=== PATIENT | male | born 1935 | race Caucasian/White ===

== ENCOUNTER 2016-06-02 11:43 | Inpatient (IN) | payer MEDICARE ==
[~2016-06-02] VITALS: Ht 177.8 cm; Wt 80.8 kg
--- NOTE | ~2016-06-02 | CO ---
ADMIT: 06/02/2016 RM/LOC: 504 [facility] MR#: [id number] [address] [address] OLESYA PARIKH [address] [place] [address] Consultation SEX: M AGE: 81 : 1935 Corrected: 06/03/2016 1136 tawny ATTENDING PHYSICIAN: Tony Crandall CONSULTING PHYSICIAN: Regulo Myers MD REASON FOR CONSULTATION: Left femur fracture. HISTORY OF PRESENT ILLNESS: The patient is an 81-year-old male, who was doing some laundry, turned, fell down on his left side injuring his left hip. He had left total hip arthroplasty done by Dr. Trotter in 2010. He had his right one done by Dr. Brito in 2012. Denies any problems prior to the fall. He was brought to the emergency room, x-rays were obtained. He was found to have a periprosthetic fracture of the left proximal femur with what appears to be a well-seated and well-fixed femoral component here. I was asked to see the patient for definitive care and treatment of his fracture. MEDICATIONS: 1. Some thyroid replacement. 2. Flomax. ALLERGIES: PENICILLIN. SOCIAL HISTORY: The patient is single. He has a significant other who lives with him. Denies alcohol or tobacco use. REVIEW OF SYSTEMS: Noncontributory. He does have a history of atrial fibrillation and a pacemaker, said he saw Cardiology a week ago and did not have any problems at that point. PHYSICAL EXAMINATION: HEENT: As per Dr. Crandall's evaluation. HEART: As per Dr. Crandall's evaluation. LUNGS: As per Dr. Crandall's evaluation. ABDOMEN: As per Dr. Crandall's evaluation. EXTREMITIES: Examination of the left lower extremity, swelling and tenderness about the hip. There is some shortening and external rotation noted here. Appears to be otherwise distally neurovascularly intact. X-RAYS: Show kind of a spiral oblique fracture of the proximal femur kind of around the distal portion of the femoral prosthesis. There was no dislocation of the hip. Prosthesis appears to be well fixed. ASSESSMENT: Left periprosthetic femur fracture. ADMIT: 06/02/2016 RM/LOC: 504 [facility] MR#: [id number] [address] [address] OLESYA PARIKH [address] [place] [address] Consultation SEX: M AGE: 81 : 1935 PLAN: At this point, we talked to him about treatment options including operative fixation, would like to go ahead and proceed with this. We discussed the procedure as well as risks and benefits, which include but are not limited to, bleeding, damage to nerves and blood vessels, infection, possible nonunion, need for possible further surgery, and anesthetic risks and potential complications, which we will have Anesthesia go over with him as well. At this point, the patient elected to go ahead and proceed. Plan will be an open reduction and internal fixation of the femur fracture using plate, screws, and cables. We did discuss this with him at length as well. Regulo Myers MD/ troy JOB #: [id number] CC: Tony Crandall, Attending Physician Tony Crandall, Family Physician Corrected: 06/03/2016 1136 tawny
--- NOTE | 2016-06-03 11:08 | ER ---
ADMIT: 06/02/2016 RM/LOC: 504 [facility] MR#: [id number] [address] [place] [phone] OLESYA PARIKH [address] [place] [address] Emergency Room Report SEX: M AGE: 81 : 1935 DATE: 06/02/2016 CHIEF COMPLAINT: Fall, left hip and femur pain. HISTORY OF PRESENT ILLNESS: This is an 81-year-old white male coming in after slipping and falling. He has bilateral hip prosthesis. He has obviously significant pain in his left femur. He did not pass out. He has no other associated complaints. PAST MEDICAL HISTORY: Significant disease: Hypothyroidism, history of gastric ulcerations surgery in the past. Also, had been admitted on 27 for atrial fibrillation with rapid rate. However, he takes no medicines for this. MEDICATION: Synthroid only. ALLERGIES: UNKNOWN. FAMILY AND SOCIAL HISTORY: Negative. REVIEW OF SYSTEMS: CONSTITUTIONAL: Negative. RESPIRATORY: Negative. PHYSICAL EXAMINATION: GENERAL: No acute distress. VITAL SIGNS: Stable. Afebrile. HEENT: Conjunctivae are clear. Nose is clear. Mouth - mucous membranes are moist. NECK: Supple, no masses. RESPIRATORY: No retracting. HEART: Regular rate and rhythm. GI: Abdomen is nontender, no rebound, guarding, rigidity or organomegaly. SKIN: Warm, pink and dry. EXTREMITIES: Again, this is where his pain is. As noted, he had bilateral hip prosthesis. DIRECTOR WORKERS COMPENSATION: Alert and oriented. Motor and sensory functions are intact. LABORATORY DATA: CBC, chemistry, EKG, Protime, and UA are pending. Chest x- ADMIT: 06/02/2016 RM/LOC: 504 [facility] MR#: [id number] [address] [place] [phone] OLESYA PARIKH [address] [place] [address] Emergency Room Report SEX: M AGE: 81 : 1935 ray negative. X-ray pelvis is negative, but the femur at the tip of the prosthesis on the left with oblique fracture. EKG at this time is pending. DIAGNOSES: 1. Left femur fracture at prosthesis. 2. History of atrial fibrillation. 3. Hypothyroidism. TREATMENT: I spoke Dr. Crandall, and Dr. Myers who will admit. As well as the . He has pain medicine. He is comfortable. CONDITION ON ADMISSION: Fair. Jm Bolivar MD/ troy JOB #: [id number] CC: Tony Crandall MD, Attending Physician Tony Crandall MD, Family Physician
--- NOTE | 2016-06-03 18:13 | NUR ---
UNABLE TO PEFORM SECOND ASSESSMENT WELL END OF SHIFT PAIN ASSESSMENT OR I/O D/T PATIENT STILL IN SURGERY.
--- NOTE | 2016-06-04 11:08 | HP ---
ADMIT: 06/02/2016 RM/LOC: 504 [facility] MR#: [id number] [address] [address] RAUL PARIKH [address] [place] [address] History and Physical SEX: M AGE: 81 : 1935 DATE OF SERVICE: CHIEF COMPLAINT: Fractured left femur. HISTORY OF PRESENT ILLNESS: Raul is a very nice 81-year-old male, who I believe receives some of his primary care from Dr. Lepe here in town. He was at home doing some laundry, he turned, fell down to the floor, pain in his left hip, was brought to emergency room and found to have a fractured femur right next to his left total hip prosthesis. He is not certain if it broke before or after he fell. He is admitted to hospital at this time for orthopedic consult for internal fixation and repair of the left femur fracture. PAST MEDICAL HISTORY: Information obtained from patient and from his significant other who is his [id number]. She says she is his fiancee, they are not , but they have been together for 10 years. She states he had significant injury about 10 years ago when he was painting the top of a motor home and he fell off it, had head injury with fractured ribs. He was hospitalized with a chest tube insertion at that time. He is also found to have some type of abscess in his stomach that was drained at that time. He did require G tube at that time and that subsequently has been removed. He additionally has history of hypothyroidism, bilateral total hip arthroplasty; first one in the left hip replaced in 2010 here in [place], second one in right hip in [address] [place] [address] Brito. In 2011, he had a pacemaker placed. He is followed by Dr. Gavin Wilkerson at Cardiology. He has history of as mentioned hypothyroidism, takes thyroid replacement. Otherwise, no other medications. History of osteoarthritis. ALLERGIES: NONE. MEDICATIONS: None other than thyroid replacement. His says he takes [id number] blood thinner but not aspirin. Additional medication Flomax 0.4 mg daily. SOCIAL HISTORY: He is single. He has a son living in [address] [place] [address]. Power-of- commercial real estate attorney is his significant other who lives with him. He does not use alcohol or tobacco. FAMILY HISTORY: Noncontributory. He had three sisters. He was the youngest. Sisters have all . REVIEW OF SYSTEMS: Negative other than noted above. History of atrial fibrillation in the past with cardiac pacemaker. He denies any chest pain, shortness of breath, palpitations. He says he saw Cardiology last week and everything was doing well. PHYSICAL EXAMINATION: GENERAL: An 81-year-old male alert, cooperative. He is oriented x3. He is somewhat hearing impaired. ADMIT: 06/02/2016 RM/LOC: 504 [facility] MR#: [id number] [address] [place] [phone] PARIKH LINCOLN [address] [place] [address] History and Physical SEX: M AGE: 81 : 1935 VITAL SIGNS: Stable. Temp is 96.6, pulse 79, regular, respiratory rate 16, BP 116/70, O2 saturation 96% on room air. HEENT: Eyes, PERRL, EOMs intact. TMs not seen. Hearing aids in place. Throat is moist, not inflamed. NECK: Supple. No lymphadenopathy. No thyromegaly. LUNGS: Clear to auscultation. Respirations not labored. HEART: Regular rate. No murmur heard. ABDOMEN: Soft. No megaly or tenderness. /RECTAL: Deferred. EXTREMITIES: Some tenderness to the left hip and swelling of the left hip and left thigh region. LABORATORY AND X-RAY DATA: INR is normal at 1.07. Chemistry panel essentially normal. Creatinine is 0.8. Glucose is 120. Liver enzymes are normal. CBC; white count is 8.6, hemoglobin 13.9, platelets 150,000. Chest x- ray is unremarkable. EKG, computer interpretation is atrial fibrillation. I do not see any pacemaker activity and there does appear to be P waves present. There is some bundle-branch block present. DIAGNOSTIC IMPRESSION: 1. Fracture of left femur. 2. History of bilateral total hip arthroplasty. 3. Prior history of gastric abscess. 4. Hypothyroidism. 5. Hearing impaired. 6. Cardiac pacemaker with possible atrial fibrillation, not on anticoagulant therapy. PLAN: We will place him on telemetry, get repeat EKGs and cardiac enzymes. Otherwise, the patient is okay for OR. I did discuss with he and his power-of- commercial real estate attorney code status and they do wish to be a full code but not long-term ventilator management. Tony Crandall MD/ troy JOB #: [id number] CC: Tony Crandall, Attending Physician Tony Crandall, Family Physician
--- NOTE | 2016-06-10 09:25 | OR ---
ADMIT: 06/02/2016 RM/LOC: 504 [facility] MR#: [id number] [address] [address] OLESYA PARIKH [address] [place] [address] Operative/Delivery Room Report SEX: M AGE: 81 : 1935 SURGERY DATE: 06/03/2016 SURGEON: Regulo Myers MD PREOPERATIVE DIAGNOSIS: Left periprosthetic femur fracture adjacent to a what appears to be well-fixed total hip arthroplasty. POSTOPERATIVE DIAGNOSIS: Left periprosthetic femur fracture adjacent to a what appears to be well-fixed total hip arthroplasty. PROCEDURE: Open reduction and internal fixation using 4.5 curved plate using cables as well as screw fixation. RN HOUSE SUPERVISOR: Hal Farr PA-C and ANGELA Saavedra ANESTHESIA: General. ESTIMATED BLOOD LOSS: 1250 mL. COMPLICATIONS: None. CONDITION: Fair to recovery room. INDICATIONS: The patient is an 81-year-old male, who fell yesterday while doing some laundry, injuring his left hip. He was brought to the emergency room, x-rays were obtained. He was found to have a periprosthetic left proximal femur fracture adjacent to a total hip arthroplasty here. The x-rays appeared to be just kind of a spiral oblique-type fracture with some displacement here. We discussed the injury as well as treatment options with the patient. He wishes to proceed with surgical treatment and fixation of this at this time. The procedure as well as risks and benefits were discussed with him at length. Questions were answered and did agree to proceed. DESCRIPTION OF PROCEDURE: After informed consent was obtained, the patient was taken to the operating room, placed on the operative table in supine position after receiving a general anesthetic. The patient was then placed in the right lateral decubitus position with the left hip up. Once this was completed, the left lower extremity was prepped and draped in usual sterile fashion. We then made an incision along the proximal femur extending this probably about 20 cm or so through the skin, subcutaneous tissue. We started at the tip of the greater trochanter, extended down to the tip of the prosthesis and the fracture site here. Hemostasis was maintained using Bovie electrocautery. We then split the IT band longitudinally. We then identified the vastus lateralis, split the vastus lateralis bluntly using Bovie to cauterize any bleeders, had a fairly large hematoma here, which we sucked out. We did then identified the fracture site with quite a bit of oozing and bleeding, appeared to be coming mostly from the bone here. We dissected off the soft tissues off the lateral cortex of the femur using a large elevator. We then identified the fracture site. I placed some traction here. I used a ADMIT: 06/02/2016 RM/LOC: 504 [facility] MR#: [id number] [address] [place] [phone] OLESYA PARIKH [address] [place] [address] Operative/Delivery Room Report SEX: M AGE: 81 : 1935 large curette and cleaned out the fracture hematoma and copiously irrigated this. Once this was completed, we then were able to identify the fracture site. There was a large kind of posterior-lateral butterfly fragment. We then with some traction and internal and external rotation, we were able to get all the fragments keyed in anatomically and we were able to hold this using 2 Chava clamps. Once this was completed, we then placed three 1.0 cables around the fracture fragments to hold this into position, so that we would be able to remove the Chava clamp and place a plate here. The cables were passed without difficulty, tightened down and crimped. Once this was completed, we took AP and lateral fluoroscopic views of the proximal femur in the fracture site. Cables were in good position. The fracture appeared to be anatomically reduced. Of note, prior to reducing the fracture, we were able to identify the distal portion of the stem and this was confirmed to be well fixed here. Once this was completed, we then placed a 16-hole curved 4.5 plate beginning at the greater trochanter. This was appeared to be the correct length of plate at this point. Holding this in position, we then placed a 4.5 cortical screw distal to the tip of the prosthesis. We had an excellent bite with this. We then rechecked the x-rays and the plate remained in good position. We then began proximal fixation using 3 cables through eyelets in the plate, passing the cables and tightening these down to about 50 kg. We then placed additional unicortical screws proximally here as well. Once this was completed, we then finished our fixation distally including 4 additional locking screws. We did make a small stab incision at the most distal portion of the plate and placed the distal 3 screws percutaneously through about a 2 cm incision here. Once this was all completed, the wounds were copiously irrigated. The additional 3 cables were crimped and cut. Multiple fluoroscopic views were obtained AP and lateral plane, showing excellent reduction of the fracture and good placement and fixation of the plate here. The wounds were then copiously irrigated. We did take an intraoperative hemoglobin, it was 8.9. The patient does have some blood available, I will check another hemoglobin in a couple of hours. The fascia of the vastus lateralis was then reapproximated using 2-0 Vicryl in a running fashion. The split in the IT band was reapproximated using #1 Vicryl in a [id number]-hw-wbynx fashion. Wound was irrigated one final time. Subcutaneous tissues were closed in layers using 2-0 Vicryl in simple interrupted fashion. The skin was closed using skin marco. A sterile compressive dressing was applied consisting of Xeroform, plain gauze, ABDs, Webril, and an Alireza wrap. I placed the left lower extremity into a knee immobilizer and transferred him to recovery room in fair condition. Regulo Myers MD/ troy JOB #: [id number] CC: Tony Crandall, Attending Physician Tony Crandall, Family Physician
--- NOTE | 2016-06-20 07:52 | DS ---
ADMIT: 06/02/2016 RM/LOC: 504 [facility] MR#: [id number] ACC#: [id number] [id number] [place], [place] [address] OLESYA PARIKH [address] [place] [address] General Discharge Summary SEX: M AGE: 81 : 1935 ADMISSION DATE: 06/02/2016 DISCHARGE DATE: 06/12/2016 ADMITTING DIAGNOSIS: Fractured left hip. DISMISSAL DIAGNOSIS: Fractured left hip. PROCEDURE: Open reduction and internal fixation of hip fracture. COMPLICATING DIAGNOSES: 1. Aspiration pneumonitis. 2. Ileus. 3. Acute blood loss anemia. 4. Hypokalemia. 5. Hypothyroidism. 6. Cardiac pacemaker. 7. Bilateral total hip arthroplasties. CONSULTS: Regulo Myers MD. CHIEF COMPLAINT AND HISTORY OF PRESENT ILLNESS: An 81-year-old male, who receives his primary care from Dr. Bailey Lepe in [place]. He was brought in to the emergency room after he fell at home in the laundry room with pain in his left hip. He did not have any loss of consciousness. He just slipped and fell. X-ray in the emergency room revealed fracture of the femur just proximal to his hip prosthesis. LABORATORY REPORTS: Hemoglobin prior to dismissal was 9.0, white count 7.1, platelets 192,000. Hemoglobin did drop as low as 7.1 during the hospital stay. INR is 1.07. UA was unremarkable. Electrolytes prior to dismissal; sodium 142, potassium 3.7, chloride 108, CO2 of 26, BUN 11, creatinine 0.9, glucose 93. Troponin I x2 on admission was normal. T4 was normal at 1.25. TSH was slightly elevated at 4.1. Flat plate of the abdomen and CT of the abdomen showed air distended segments of colon and cecum somewhat enlarged with feces, appeared to be an ileus of the colon. X-ray of hip shows periprosthetic mildly displaced femoral shaft fracture. Chest x-ray showed no acute changes. Repeat flat plate abdomen on June 07 showed ileus unchanged. June 07 chest x-ray showed right lower lobe infiltrate. Barium swallow was performed on June 08. I refer you to speech therapist's notes. He was at high risk for aspiration. Chest x-ray, June 10, showed bibasilar atelectasis. COURSE IN THE HOSPITAL: Ed was admitted through the emergency room. Orthopedic consult was obtained. Once he was medically stable, Dr. Myers took him to the operating room, did open reduction and internal fixation of the femoral fracture. Postoperatively, he did have ileus, and discussing with his significant other, who is his fiancee of 10 years, she states at home, they give each other every morning a coffee enema for the health benefits that are reported from coffee enemas. In any event, he developed a fairly significant ADMIT: 06/02/2016 RM/LOC: 504 [facility] MR#: [id number] [address] [place] [phone] PARIKH SELMA [address] [place] [address] General Discharge Summary SEX: M AGE: 81 : 1935 colonic ileus postoperatively requiring laxatives and enemas to get his stool to move. He did get somewhat distended. Eventually, bowel function did return and he had bowel movements with some encouragement. He did require, as mentioned, soapsuds enema. Due to anemia, he was given 1 unit of blood transfusion. He did develop a temperature and it felt to be due to his pneumonitis and aspiration pneumonia. He was started on IV Levaquin, DuoNeb nebulizers, and oral Zithromax was added. Speech Therapy recommended n.p.o. After discussion with the patient and his significant other, for quality of life purposes, requested that he continue to be allowed to eat, and they did realize that he was at risk for recurrent aspiration pneumonia. He did develop some significant ecchymosis in the scrotal area. He had a hip spica Alireza wrap on it that was fairly tight around the abdomen. Once this was removed, the edema in the scrotal area improved. The ecchymosis did improve slowly. It was felt this was due to blood from the hip fracture and the surgery going into the scrotal area which was dependent, plus had a tourniquet effect from the Alireza wrap. His laboratory values were monitored. His pneumonia improved clinically with the nebulizers and IV antibiotics. He was able to tolerate oral diet. He was placed on thickened liquids and mechanical soft diet. Arrangements were made for him to go to inpatient rehab unit for ongoing physical therapy, occupational therapy due to the hip fracture. At the time of transfer to IRU, he was tolerating oral intake. MEDICATIONS: At the time of transfer to the IRU were: 1. Flomax 0.4 mg daily. 2. Senokot S one tab b.i.d. 3. Synthroid 25 mcg daily. 4. Zithromax 250 mg daily for two more days. 5. DuoNeb twin jet nebulizer q.i.d. 6. Lovenox 40 mg subcutaneous q.24 hours. 7. Hydrocodone p.r.n. 8. Maalox. 9. Milk of magnesia. Tony Crandall MD/ troy JOB #: [id number] CC: Tony Crandall MD, Attending Physician Tony Crandall MD, Family Physician
[2016-07-01] MEDS ORDERED: VITAMIN D1000 UNI1 PO (08:26)
[2016-07-01] MEDS ORDERED: FLOMAX DPS0.4 MG PO (08:26)
[2016-07-01] MEDS ORDERED: ASA325 MG PO (08:26)
[2016-07-01] MEDS ORDERED: TYLENOL DPS325 MG PO (08:27)
[2016-07-01] MEDS ORDERED: ULTRAM DPS50 MG PO (08:27)
== END 2016-06-12 14:40 | disposition short-term general hospital (02) | DRG 480 ==
LOC: ER 11:43 → 5MS 14:20 → 6IRU 06-12 14:57 → 5MS 06-12 14:57
PROVIDERS: ADMIT Family Medicine
PROC: 30233N1 Transfusion of Nonautologous Red Blood Cells into Peripheral Vein, Percutaneous Approach (ICD-10-PCS; principal; 2016-06-03)
PROC: 0QS704Z Reposition Left Upper Femur with Internal Fixation Device, Open Approach (ICD-10-PCS; principal; 2016-06-03)
DX: S72.002A Fracture of unspecified part of neck of left femur, initial encounter for closed fracture (principal); J69.0 Pneumonitis due to inhalation of food and vomit; K56.7 Ileus, unspecified; M97.02XA Periprosthetic fracture around internal prosthetic left hip joint, initial encounter; D62 Acute posthemorrhagic anemia; W18.30XA Fall on same level, unspecified, initial encounter; E87.6 Hypokalemia; I48.91 Unspecified atrial fibrillation; E03.9 Hypothyroidism, unspecified; M19.90 Unspecified osteoarthritis, unspecified site; H91.90 Unspecified hearing loss, unspecified ear; Z87.11 Personal history of peptic ulcer disease; Z96.643 Presence of artificial hip joint, bilateral; Z95.0 Presence of cardiac pacemaker; Y95 Nosocomial condition

== ENCOUNTER 2016-06-12 14:20 | Inpatient (IN) | payer MEDICARE ==
[~2016-06-12] VITALS: Ht 175.3 cm; Wt 73.0 kg
--- NOTE | 2016-06-20 19:06 | NUR ---
DAY SHIFT SUMMARY: SEE OT FIM/NOTE FOR GROOMING AND DRESSING. MECH SOFT/NECTAR THICK DIET SUPERVISED; MOD ASSIST OF 1 FOR TOILETING; MIN ASSIST OF 1 FOR BED/W/C/TOILET TRANSFERS; MAX ASSIST OF 1 FOR W/C PROPULSION; WEARS HEARING AIDES
--- NOTE | 2016-06-24 19:49 | NUR ---
SHIFT SUMMARY: GROOMING AND UPPER DRESSING ARE SUPERVISED; LOWER DRESSING AND TOILET TRANSFERS ARE MOD RAJ OF 1 WITH USE OF WALKER AND GRAB BARS; ON MEDS FOR BLADDER AND BOWEL MANAGEMENT; MIN ASSIST OF 1 FOR BED/W/C TRANSFERS; MAX ASSIST OF 1 FOR TOILETING AND W/C PROPULSION
[2016-07-01] MEDS ORDERED: ASA325 MG PO (08:26)
[2016-07-01] MEDS ORDERED: FLOMAX DPS0.4 MG PO (08:26)
[2016-07-01] MEDS ORDERED: VITAMIN D1000 UNI1 PO (08:26)
[2016-07-01] MEDS ORDERED: TYLENOL DPS325 MG PO (08:27)
[2016-07-01] MEDS ORDERED: ULTRAM DPS50 MG PO (08:27)
--- NOTE | 2016-08-01 17:11 | DS ---
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 Onset 06/02/2016, comorbid conditions per initial H and P. Other diagnoses per hospital course below. HOSPITAL COURSE: Please see my initial H and P for details prior to transfer to IRU. In brief, he had an oblique mildly displaced fracture of the proximal femoral shaft to the distal tip of the femoral component of the left CALIN with acetabular component intact and prosthesis appeared well fixed status post ORIF 06/03/2016, nonweightbearing, left lower extremity in an immobilizer. Pain and bowel regimen were adjusted. Lab was monitored regularly. Hydrocodone switched to oxycodone for pain. Milk of magnesia switched to Senokot-S for constipation. DuoNeb changed to b.i.d. and b.i.d. p.r.n. for respiratory status. Pharmacist followed to optimize medication management. Dietitian followed to optimize nutrition. PVRs were obtained. Lovenox was continued for DVT prophylaxis. TEDs were changed, EdemaWear for peripheral edema. Acute blood loss anemia with iron deficiency. Treated with Feosol, vitamin C. Labs followed up on. Vitamin D deficiency, replaced with vitamin D3. Bowel regimen again adjusted. Labs followed up on. Scheduled DuoNeb was discontinued. Melatonin for insomnia. Gabapentin for pain and insomnia. OxyIR switched to tramadol. Tylenol for pain. TSH and free T4 followed up on for hypothyroidism with a high TSH previously. Scheduled Ultram and Tylenol discontinued and just used p.r.n. melatonin switched to p.r.n. Low air loss mattress for insomnia. Synthroid, melatonin, Neurontin, DuoNeb all discontinued. Discussed TSH, hypothyroidism with Dr. Crandall and he had recommended discontinuing the Synthroid which was done. Feosol and vitamin C adjusted to 3 times a day between meals due to continued anemia with iron deficiency. Tramadol and Tylenol again scheduled for pain which recurred Flomax adjusted for BPH. Welchol started for diarrhea. Feosol and vitamin C discontinued. Welchol adjusted before discharge. The patient was medically stable at the time of discharge. ADMIT: 06/12/2016 RM/LOC: 611 [facility] MR#: [id number] [address] [place] [id number] OLESYA PARIKH [address] [place] [address] General Discharge Summary SEX: M AGE: 81 : 1935 Please see IRU interdisciplinary discharge summary for details regarding progress in therapy. DISPOSITION: Home with friend, [place], after planned home safety evaluation with PT/OT, and will continue to receive services through [facility] including RN, PT/OT, and home health aide. He has wheelchair ramp through [place] [facility] and toilet safety frame and shower chair at home. DISCHARGE MEDICATIONS: Please see discharge med rec. He was given #90 of Ultram with two refills. Was put on aspirin for DVT prophylaxis 325 mg daily. Lovenox discontinued at discharge. FOLLOWUP: Dr. Myers on 07/06/2016. Dr. Crandall on 07/15/2016. Scott Toledo MD/ [place] JOB #: [id number] CC:
== END 2016-06-29 13:00 | disposition home or self-care (01) | DRG 560 ==
LOC: 6IRU 14:20
PROVIDERS: ADMIT Physical Medicine & Rehabilitation
PROC: F07Z9FZ Gait Training/Functional Ambulation Treatment using Assistive, Adaptive, Supportive or Protective Equipment (ICD-10-PCS; principal; 2016-06-12)
PROC: F08Z2FZ Grooming/Personal Hygiene Treatment using Assistive, Adaptive, Supportive or Protective Equipment (ICD-10-PCS; principal; 2016-06-12)
PROC: F07Z5FZ Bed Mobility Treatment using Assistive, Adaptive, Supportive or Protective Equipment (ICD-10-PCS; principal; 2016-06-12)
PROC: F08Z1FZ Dressing Techniques Treatment using Assistive, Adaptive, Supportive or Protective Equipment (ICD-10-PCS; principal; 2016-06-12)
DX: S72.332D Displaced oblique fracture of shaft of left femur, subsequent encounter for closed fracture with routine healing (principal); D62 Acute posthemorrhagic anemia; D63.8 Anemia in other chronic diseases classified elsewhere; I48.91 Unspecified atrial fibrillation; I10 Essential (primary) hypertension; M97.02XD Periprosthetic fracture around internal prosthetic left hip joint, subsequent encounter; M81.0 Age-related osteoporosis without current pathological fracture; I25.10 Atherosclerotic heart disease of native coronary artery without angina pectoris; G89.18 Other acute postprocedural pain; M62.81 Muscle weakness (generalized); N40.0 Benign prostatic hyperplasia without lower urinary tract symptoms; E03.9 Hypothyroidism, unspecified; G47.00 Insomnia, unspecified; R19.7 Diarrhea, unspecified; R60.0 Localized edema; D50.9 Iron deficiency anemia, unspecified; K59.00 Constipation, unspecified; R03.1 Nonspecific low blood-pressure reading; W19.XXXD Unspecified fall, subsequent encounter; Z95.0 Presence of cardiac pacemaker; Z87.820 Personal history of traumatic brain injury